=== PATIENT | female | born 1990 | race Caucasian/White ===

== ENCOUNTER → 2016-09-12 | Outpatient (CLI) | payer BC, OTHER ==
[~2016-09-12] MED LIST: ESCI1TAB10 PO; HYDR2TAB48 PO; LAMO25TA PO; METO25TA56 PO; NIFE30TA83 PO; PRENTAB26 PO; SNQ/25 PO; TOPI25TA99 PO; TOPI50TA16 PO; TOPI50TA24 PO; ZOLP10TA PO; verapamil PO
--- NOTE | 2016-09-12 12:30 | DIAGNOSTIC IMAGING REPORT ---
L-SPINE MIN 4 VIEWS ROUTINE CLINICAL HISTORY: Low back pain. COMPARISON: None FINDINGS: Alignment of the lumbar spine is anatomic. Vertebral body heights are maintained. There is no fracture or suspicious lesion. Disc spaces are preserved. There are cholecystectomy clips. There are a few suspected small right renal calculi measure up to 3 mm. There could be punctate left renal calculi. There is an 8.4 cm round density projecting of the left mid abdomen. IMPRESSION: 1. Unremarkable radiographic appearance of the lumbar spine. 2. Suspected right-sided nephrolithiasis with possible left renal calculi. 3. 8.4 cm round density projecting over the left mid abdomen. This is of uncertain clinical significance and could be artifactual or represent a bowel loop. However, a mass could appear similar. A contrast-enhanced CT of the abdomen and pelvis is recommended. Electronically signed by: Jakob Bruno M.D. 09/12/2016 12:29 PM Dictated Date/Time: 09/12/2016 12:26 PM
== END | disposition home or self-care (01) ==
LOC: C.RADBC 12:02
PROVIDERS: ATTEND Physician Assistant Medical
DX: M54.5 Low back pain (principal); R93.5 Abnormal findings on diagnostic imaging of other abdominal regions, including retroperitoneum